=== PATIENT | female | born 1945 | race Caucasian/White ===

== ENCOUNTER 2024-03-22 15:37 | Emergency (ER) | payer MEDICARE, OTHER, SELFPAY ==
[2024-03-22 15:40] VITALS: BP 140/97
[2024-03-22 16:16] LABS: % Basophils 0.8 % (0-2); % Eosinophils 2.5 % (0-6); % Immature Granulocytes 0.4 % (0-0.5); % Lymphocytes 27.3 % (20.5-51.1); % Monocytes 7.1 % (1.7-9.3); % Neutrophils 61.9 % (42.2-75.2); Absolute Basophils 0.1 10^3/uL (0-0.2); Absolute Eosinophils 0.3 10^3/uL (0-0.7); Absolute Immature Granulocytes 0.1 10^3/uL (0-0.05); Absolute Lymphocytes 3.1 10^3/uL (1.2-3.4); Absolute Monocytes 0.8 10^3/uL (0.1-0.6); Absolute Neutrophils 6.9 10^3/uL (1.4-6.5); Hematocrit 37.8 % (37.0-47.0); Hemoglobin 13.4 g/dL (12.0-16.0); Mean Corp Hgb Conc. 35.4 g/dL (33.0-37.0); Mean Corpuscular Hgb 30.7 pg (27.0-31.0); Mean Corpuscular Volume 86.5 fL (81.0-99.0); Mean Platelet Volume 8.4 fL (7.4-10.4); Nucleated Red Blood Cells % 0 %; Platelet Count 407 10^3/uL (130-400); Red Blood Cell Count 4.37 10^6/uL (4.20-5.40); Red Cell Dist. Width 13.1 % (11.5-14.5); White Blood Cell Count 11.2 10^3/uL (4.8-10.8)
[2024-03-22 16:19] LABS: ALT (SGPT) 25 U/L (0-35); AST (SGOT) 33 U/L (14-36); Albumin 4.8 g/dl (3.5-5.0); Alkaline Phosphatase 96 U/L (38-126); Blood Urea Nitrogen 25 mg/dl (7-17); Calcium 9.9 mg/dl (8.4-10.2); Carbon Dioxide 25 mmol/L (22-30); Chloride 100 mmol/L (98-107); Glucose 131 mg/dl (70-99); Potassium 4.4 mmol/L (3.5-5.1); Sodium 134 mmol/L (135-145); Total Bilirubin 1.1 mg/dl (0.2-1.3); Total Protein 7.6 g/dl (6.3-8.2); eGFR > 60.00
[2024-03-22 16:25] LABS: Troponin I < 0.012 ng/ml
--- NOTE | 2024-03-22 17:33 | ED.GENMED ---
History of Present Illness
<Ada Muhammad PA-C - Last Filed: 03/22/24 19:01>
General
Chief Complaint: Allergic Reaction
Source: patient
Exam Limitations: none
Time Seen by Provider: 03/22/24 16:46
Nursing documentation reviewed up to this point in time: agreed with
History of Present Illness
History of Present Illness:
78-year-old female with past medical history of asthma, hypertension, hyperlipidemia, diabetes on metformin presenting emergency department today with concerns of allergic reaction. Patient states that she had her first dose of her new asthma
medication last night called montelukast. Patient states that this morning around 10 AM, she started to have mild discomfort in her chest, discomfort in her throat, and itchy rash on her bilateral upper and lower extremities, as well as flushing
sensation and swelling in her eyelids. Patient got this a few weeks ago for full body rash. Patient notes that her passed years ago and thinks that her recent outbreaks of this rash may be related. Patient follows with Dr. Alonzo for
pulmonology. Patient does not have a follow-up scheduled. Patient denies shortness of breath, tongue or lip swelling, eye pain or itchiness, abdominal pain, nausea, vomiting. Patient denies any new foods or environmental triggers. Patient also
states that she feels congested. Patient has not tried anything at home for her symptoms.
Review of Systems
<Ada Muhammad PA-C - Last Filed: 03/22/24 19:01>
Review of Systems
All Other Systems: ROS reviewed and negative except as documented in HPI and ROS
Phy Exam
<Ada Muhammad PA-C - Last Filed: 03/22/24 19:01>
Physical Exam
Physical Exam:
General: Patient is well appearing and in no acute distress; non-toxic
Skin: Warm and dry, scattered urticarial rash noted to bilateral upper and lower extremities no excoriations or open lesions
Head: Normocephalic, atraumatic
Eyes: Sclera non-icteric. EOMs intact. Mild swelling of left upper eyelid.
Mouth: Uvula midline. No tonsillar hypertrophy.
Cardiac: Regular rate and rhythm, no murmur. No tenderness palpation of the external chest wall.
Peripheral Vascular: No lower extremity swelling or edema
Pulm: Normal respiratory effort, no wheezes, rales, rhonchi
Abdomen: No abdominal tenderness to palpation
Neuro: CN II-XII intact, no focal neurologic deficits.
Psychiatric: Appropriate mood and affect.
Course
<Ada Muhammad PA-C - Last Filed: 03/22/24 19:01>
Orders/Labs/Results
Orders:
Orders
03/22/24 15:46
Electrocardiogram (*1) Urgent
Reason for Study: Chest Pain
EKG- Treatment ONCE
03/22/24 15:52
Complete Blood Count/With Diff Urgent
Comprehensive Metabolic Panel Urgent
Troponin I Urgent
03/22/24 17:13
Diphenhydramine [Benadryl] 25 mg PO NOW STA
Famotidine [Pepcid] 20 mg PO NOW STA
03/22/24 17:23
Diphenhydramine [Benadryl] 25 mg PO NOW STA
Famotidine [Pepcid] 20 mg PO NOW STA
03/22/24 17:25
Dexamethasone [Decadron] 10 mg PO NOW STA
Abnormal Lab Results
03/22/24
15:52
WBC 11.2 H 10^3/uL
(4.8-10.8)
Plt Count 407 H 10^3/uL
(130-400)
Abs Immat Gran (auto) 0.1 H 10^3/uL
(0-0.05)
Absolute Neuts (auto) 6.9 H 10^3/uL
(1.4-6.5)
Absolute Monos (auto) 0.8 H 10^3/uL
(0.1-0.6)
Sodium 134 L mmol/L
(135-145)
BUN 25 H mg/dl
(7-17)
Glucose 131 H mg/dl
(70-99)
03/22/24 15:52
03/22/24 15:52
Vital Signs
Initial and Last Documented VS:
Initial Vital Signs
Temp Pulse Resp BP Pulse Ox
97.8 F 78 20 140/97 98
03/22/24 15:40 03/22/24 15:40 03/22/24 15:40 03/22/24 15:40 03/22/24 15:40
Last Documented Vital Signs
Temp Pulse Resp BP Pulse Ox
97.8 F 75 18 153/79 96
03/22/24 15:40 03/22/24 18:52 03/22/24 18:52 03/22/24 18:52 03/22/24 18:52
<Roberto Velez, DO - Last Filed: 03/22/24 19:48>
Orders/Labs/Results
Orders:
Orders
03/22/24 15:46
Electrocardiogram (*1) Urgent
Reason for Study: Chest Pain
EKG- Treatment ONCE
03/22/24 15:52
Complete Blood Count/With Diff Urgent
Comprehensive Metabolic Panel Urgent
Troponin I Urgent
03/22/24 17:13
Diphenhydramine [Benadryl] 25 mg PO NOW STA
Famotidine [Pepcid] 20 mg PO NOW STA
03/22/24 17:23
Diphenhydramine [Benadryl] 25 mg PO NOW STA
Famotidine [Pepcid] 20 mg PO NOW STA
03/22/24 17:25
Dexamethasone [Decadron] 10 mg PO NOW STA
Abnormal Lab Results
03/22/24
15:52
WBC 11.2 H 10^3/uL
(4.8-10.8)
Plt Count 407 H 10^3/uL
(130-400)
Abs Immat Gran (auto) 0.1 H 10^3/uL
(0-0.05)
Absolute Neuts (auto) 6.9 H 10^3/uL
(1.4-6.5)
Absolute Monos (auto) 0.8 H 10^3/uL
(0.1-0.6)
Sodium 134 L mmol/L
(135-145)
BUN 25 H mg/dl
(7-17)
Glucose 131 H mg/dl
(70-99)
03/22/24 15:52
03/22/24 15:52
Vital Signs
Initial and Last Documented VS:
Initial Vital Signs
Temp Pulse Resp BP Pulse Ox
97.8 F 78 20 140/97 98
03/22/24 15:40 03/22/24 15:40 03/22/24 15:40 03/22/24 15:40 03/22/24 15:40
Last Documented Vital Signs
Temp Pulse Resp BP Pulse Ox
97.8 F 75 18 153/79 96
03/22/24 15:40 03/22/24 18:52 03/22/24 18:52 03/22/24 18:52 03/22/24 18:52
[place];Ada Muhammad PA-C - Last Filed: 03/22/24 19:01>
MDM/Problems Addressed
Differential Diagnosis Includes:
Differentials include acute drug reaction, contact dermatitis, allergic rhinitis, cholinergic urticaria
MDM/Problems Addressed:
Allergic reaction:
78-year-old female with past medical history of asthma, hypertension, hyperlipidemia, diabetes on metformin presenting emergency department today with concerns of allergic reaction. Patient states that she had her first dose of her new asthma
medication last night called montelukast. Patient states that this morning around 10 AM, she started to have mild discomfort in her chest, discomfort in her throat, and itchy rash on her bilateral upper and lower extremities, as well as flushing
sensation and swelling in her eyelids. Patient did not take any medications for her symptoms. On exam, she is well-appearing, she is mild urticarial rash to her upper bilateral lower extremities, she has no airway involvement, her lungs are clear
to auscultation bilaterally. Patient was treated with Benadryl, famotidine, and a dose of Decadron here in emergency department. Discussed discontinuing the montelukast and keeping an log of her symptoms so that she can bring her symptoms to
follow-up with the pharmacy intake technician. We did give her referral for pharmacy intake technician. Concern for ACS at this time, patient had an undetectable troponin here and her symptoms started at 10 AM, her EKG shows normal sinus rhythm with no ischemic changes. Patient
stable for outpatient follow-up.
Chronic conditions affecting care:
Asthma, hypertension, hyperlipidemia, diabetes on metformin
<Ada Muhammad PA-C - Last Filed: 03/22/24 19:01>
*Critical Care Note
Total Time (30-74mins, 75-104mins- exclusive of procedures): Not Applicable
<Ada Muhammad PA-C - Last Filed: 03/22/24 19:01>
Patient Management
Escalation/DeEscalation of care consider admission/obs:
admit not indicated, patient stable for discharge, return precautions discussed
ED Attending Note
<NELL Davis Last Filed: 03/22/24 19:01>
-
Portions of this chart may have been created with voice recognition software.� Occasional wrong word or��sound alike� substitutions may have occurred due to the inherent limitations of voice recognition software.
<Roberot Velez DO - Last Filed: 03/22/24 19:48>
ED Attending Note
Patient seen and examined by attending physician: Yes
I performed the substantive portion of visit, reviewed & personally made and approve the management plan that is documented in note by myself or PATRICIA.: Yes
ED Attending Note:
78-year-old female who unfortunately had multiple allergic reactions in the recent past related to different medications. She started Singulair last night and today had felt flushed, some swelling of her eyes, redness of her arms and some chest
tightness and heaviness. The heaviness of her chest is what worried her the most. She now feels much better. Patient mitts that she has had allergic reactions to other medications over time as well. She has been suffering from some asthma. She
did feel good when she was recently on steroids exam: Awake alert, lungs clear bilaterally, heart regular. No tongue or lip swelling. No stridor. Assessment plan: For now we will stop Singulair but I advised the patient to use a log for future
reactions. She will follow-up with an pharmacy intake technician.
Discharge Plan
Departure
Patient Disposition: Home (Routine Discharge)
Date of Disposition: 03/22/24
Time of Disposition: 18:55
Patient with high blood pressure during this ER visit?: Yes
Condition: Good
Discharge Problem:
Allergic reaction
Instructions: Hives (DC), Adverse Drug Reactions, Adult (DC), BLOOD PRESSURE
Referrals:
Duong Hernandez PA-C [[facility]] - Call in 1-3 days for appt
Maris Miller CRNP [Family Provider] -
Activity Restrictions/Additional Instructions:
As discussed, keep a log of your symptoms to report to the pharmacy intake technician. You can call the attached number for follow-up appointment.
You can take Benadryl as needed for symptoms.
Please stop taking your montelukast.
Please return to the emergency department should you experience chest pain, shortness of breath, sensation of your throat closing, tongue or lip swelling, intractable vomiting, fevers or chills, difficulty speaking, confusion, weakness, or any signs
or symptoms concerning to you.
Please follow-up with your primary care provider and your university counselor.
Interventions
Interventions:
*Risk Screen - Suicide Last Done: 03/22/24 15:40
*General Assessment Last Done: 03/22/24 15:40
*Neglect/Abuse Screening Last Done: 03/22/24 15:40
ED- Fall Risk Assessment Last Done: 03/22/24 17:22
*Nursing Disposition Last Done: 03/22/24 19:02
ED- Cardiac Assessment Last Done: 03/22/24 17:22
ED- Pulmonary Assessment Last Done: 03/22/24 17:22
ED-Skin Assessment Last Done: 03/22/24 17:22
Discharge Date and Time
Discharge Date/Time: 03/22/24 19:02
Print Language: WELSH
[2024-03-22] MEDS: DECADRON 10 MG PO (17:35)
[2024-03-22] MEDS: BENADRYL 25 MG PO (17:36)
[2024-03-22] MEDS: PEPCID 20 MG PO (17:36)
[2024-03-22 18:52] VITALS: BP 153/79
== END 2024-03-22 19:02 | disposition home or self-care (01) ==
LOC: EMR 15:37
PROVIDERS: Emergency Medicine; EMERGENCY PHYSICIAN Emergency Medicine; FAMILY PHYSICIAN Nurse Practitioner Family
DX: T78.40XA Allergy, unspecified, initial encounter (principal); X58.XXXA Exposure to other specified factors, initial encounter; J45.909 Unspecified asthma, uncomplicated; I10 Essential (primary) hypertension; E78.00 Pure hypercholesterolemia, unspecified; E11.9 Type 2 diabetes mellitus without complications; Z88.8 Allergy status to other drugs, medicaments and biological substances
CPT/HCPCS: 99283; 80053; 84484; 85025; 93005

== ENCOUNTER 2024-05-02 19:02 | Emergency (ER) | payer MEDICARE, OTHER, SELFPAY ==
[2024-05-02 19:10] VITALS: BP 153/74
[2024-05-02 19:54] VITALS: BMI 30.4
[2024-05-02 20:06] VITALS: BP 154/68
[2024-05-02 20:52] VITALS: BP 149/82
[2024-05-02] MEDS: DELTASONE 50 MG PO (20:54)
--- NOTE | 2024-05-02 20:55 | ED.GENMED ---
History of Present Illness
General
Chief Complaint: Breathing Problem
Source: patient
Exam Limitations: none
Time Seen by Provider: 05/02/24 19:53
Nursing documentation reviewed up to this point in time: agreed with
History of Present Illness
History of Present Illness:
Patient with longstanding history of asthma, who utilizes rescue inhaler as well as Spiriva, presents to ED secondary to recurrent throat prickly sensation along with wheezing starting this afternoon. Patient does have a DuoNeb, that she utilizes
as needed, which she used this afternoon with improvement. However, her symptoms came back couple hours later. Due to potential side effects, patient was afraid to use it again. Denies fever or chills. Denies coughing. Patient reports
intermittent cough. Denies chest pain. Denies back pain. Denies nausea or vomiting. Denies sick contact. Denies recent travel. Patient unfortunately has had number of similar symptoms in the recent past, and reports feeling frustrated, as her
symptoms are continuing despite changing her medications. She does have an appointment with her business management analyst next month.
Review of Systems
Review of Systems
Allergies reviewed?: Yes
All Other Systems: ROS reviewed and negative except as documented in HPI and ROS
Constitutional: Reports no symptoms; Denies fever
EENT: Reports no symptoms
Respiratory: Reports cough and trouble breathing
Cardiac: Reports no symptoms
ABD/GI: Reports no symptoms
Musculoskeletal: Reports no symptoms
Skin: Reports no symptoms; Denies itching or rash
Neurological: Reports no symptoms; Denies headache
Phy Exam
Physical Exam
Physical Exam:
Physical Exam
General: no apparent distress, not acutely ill. afebrile
Head: nc/at. eomi
Neck: supple. no meningeal signs.
Heart: s1/s2 regular rate and rhythm, no murmur. equal radial pulses.
Lungs: no acute respiratory distress. mild expiratory wheezing noted bilaterally
Abdomen: normal bowel sounds. not tender.
Neuro: alert and oriented. no focal neurological deficits
Skin: no rash
Psychiatric: well kept. interactive and cooperative
Extremities: no edema. no calf tenderness.
Scores
Heart Failure Risk
Heart Failure Risk Score: Not Applicable
Course
Orders/Labs/Results
Orders:
Orders
05/02/24 20:52
Prednisone [Deltasone] 50 mg PO NOW STA
05/02/24 20:55
Prednisone [Deltasone] 50 mg PO NOW STA
Vital Signs
Initial and Last Documented VS:
Initial Vital Signs
Temp Pulse Resp BP Pulse Ox
97.8 F 82 20 153/74 98
05/02/24 19:10 05/02/24 19:10 05/02/24 19:10 05/02/24 19:10 05/02/24 19:10
Last Documented Vital Signs
Temp Pulse Resp BP Pulse Ox
98.0 F 80 18 149/82 97
05/02/24 20:06 05/02/24 20:52 05/02/24 20:52 05/02/24 20:52 05/02/24 20:52
MDM/Problems Addressed
MDM/Problems Addressed:
History and exam consistent with likely recurrent asthma exacerbation, possibly secondary to recent weather changes. However, patient is afebrile, hemodynamically stable, with stable vital signs. Patient is not any acute respiratory distress,
despite mild wheezing noted on exam. At this time, I believe it is reasonable to discharge patient home on tapered dose of prednisone, which she has taken in the past with improvement, along with close follow-up with her business management analyst. Patient and
daughter expressed understanding at time of discharge.
*Critical Care Note
Total Time (30-74mins, 75-104mins- exclusive of procedures): Not Applicable
ED Attending Note
-
Portions of this chart may have been created with voice recognition software.� Occasional wrong word or��sound alike� substitutions may have occurred due to the inherent limitations of voice recognition software.
Discharge Plan
Departure
Patient Disposition: Home (Routine Discharge)
Date of Disposition: 05/02/24
Time of Disposition: 20:55
Patient with high blood pressure during this ER visit?: Yes
Condition: Good
Discharge Problem:
Asthma
Instructions: Asthma, Adult (DC)
Prescriptions:
New
prednisone 10 mg Tablet
See Rx Instructions .ROUTE .COMPLEX Qty: 30 0RF
Rx Instructions:
Take By Mouth:
40 mg daily x3 days, 30 mg daily x3 days,
20 mg daily x3 days, 10 mg daily x3 days.
No Action
metoprolol succinate 100 mg Tablet Extended Release 24 Hr
100 mg PO DAILY
amlodipine 10 mg Tablet
10 mg PO DAILY
metformin 1,000 mg Tablet
1,000 mg PO DAILY
hydrochlorothiazide 25 mg Tablet
25 mg PO DAILY
losartan 100 mg Tablet
100 mg PO DAILY
fluticasone propionate 50 mcg/actuation [place],Suspension
1 spray INTRANASAL Q12H
loratadine [Claritin] 10 mg Tablet
10 mg PO DAILY
Centrum Silver Tablet
1 tab PO DAILY
coenzyme Q10 [CoQ-10] 100 mg Capsule
300 mg PO DAILY
Leqvio 284 mg/1.5 mL Syringe
284 mg SC [id number]
Referrals:
Wendi Toledo DO [Active] -
Activity Restrictions/Additional Instructions:
As discussed, please follow-up with your business management analyst for further evaluation and treatment. Your prescription has been sent electronically to [facility].
Interventions
Interventions:
*Risk Screen - Suicide Last Done: 05/02/24 19:56
*General Assessment Last Done: 05/02/24 19:53
*Neglect/Abuse Screening Last Done: 05/02/24 19:54
ED- Fall Risk Assessment Last Done: 05/02/24 20:07
*ED COVID-19 Vaccine History Last Done: 05/02/24 19:53
*Nursing Disposition Last Done: 05/02/24 20:58
ED- Cardiac Assessment Last Done: 05/02/24 20:07
ED- Pulmonary Assessment Last Done: 05/02/24 20:07
Discharge Date and Time
Discharge Date/Time: 05/02/24 21:04
Print Language: [place]
== END 2024-05-02 21:04 | disposition home or self-care (01) ==
LOC: EMR 19:02
PROVIDERS: EMERGENCY PHYSICIAN Emergency Medicine; FAMILY PHYSICIAN Nurse Practitioner Family
DX: J45.901 Unspecified asthma with (acute) exacerbation (principal); I10 Essential (primary) hypertension; E78.5 Hyperlipidemia, unspecified; E11.36 Type 2 diabetes mellitus with diabetic cataract; Z85.3 Personal history of malignant neoplasm of breast; Z79.84 Long term (current) use of oral hypoglycemic drugs; Z88.0 Allergy status to penicillin; Z88.8 Allergy status to other drugs, medicaments and biological substances
CPT/HCPCS: 99283

== ENCOUNTER 2024-10-30 22:01 | Emergency (ER) | payer MEDICARE, OTHER, SELFPAY ==
[2024-10-30 22:07] VITALS: BP 160/87
[2024-10-30 23:01] VITALS: BP 138/65
[2024-10-30 23:06] VITALS: BMI 31.4
--- NOTE | 2024-10-30 23:40 | ED.GENMED ---
History of Present Illness
General
Chief Complaint: Heart Rate Problem
Source: patient
Time Seen by Provider: 10/30/24 22:59
History of Present Illness
History of Present Illness:
79-year-old female presents emergency complaint palpitations. Patient was sitting watching TV when she noted an irregular heartbeat. She did count her pulse and noted it was up to 100. Symptoms seem to have resolved at this point. She did
consume 2 large glasses of iced tea and half a cup of coffee this evening. The coffee is typical for her but the ice tea was not something she typically consumes at night. Also noted that she had a shingles vaccine injection couple days ago. No
shortness of breath. No chest pressure or tightness.
Phy Exam
Physical Exam
Physical Exam:
General: Awake, Alert, Oriented X3. No acute distress.
Vitals: unremarkable
Head: Atraumatic
Eyes: Pupils equal, EOMI
Throat: Airway intact, no exudates
Neck: Trachea midline
Lungs: Clear and equal b/l
Heart: Regular rate, no murmurs
Abd: Soft, Nontender, No pulsatile mass
Neuro: Nonfocal
Skin: Warm, dry, no rash
Extremities: pulses equal b/l, no edema
Course
Orders/Labs/Results
Orders:
Orders
10/30/24 22:02
ECG [Electrocardiogram (*1)] Urgent
Reason for Study: Tachycardia
EKG- Treatment ONCE
10/30/24 23:51
Basic Metabolic Panel Urgent
Complete Blood Count/With Diff Urgent
Magnesium Urgent
Abnormal Lab Results
10/30/24
23:51
Absolute Monos (auto) 0.9 H 10^3/uL
(0.1-0.6)
BUN 19 H mg/dl
(7-17)
Glucose 148 H mg/dl
(70-99)
10/30/24 23:51
10/30/24 23:51
Vital Signs
Initial and Last Documented VS:
Initial Vital Signs
Temp Pulse Resp BP Pulse Ox
98.5 F 96 18 160/87 99
10/30/24 22:07 10/30/24 22:07 10/30/24 22:07 10/30/24 22:07 10/30/24 22:07
Last Documented Vital Signs
Temp Pulse Resp BP Pulse Ox
98.5 F 74 20 146/68 99
10/30/24 22:07 10/31/24 00:55 10/31/24 00:55 10/31/24 00:00 10/31/24 00:55
MDM/Problems Addressed
Differential Diagnosis Includes:
PVCs, PACs, A-fib
MDM/Problems Addressed:
Patient presents feeling an irregular heart rate. She did measure her heart rate at home and it was about 100. EKG here shows some PACs. She was monitored on the monitoring manager for couple hours without any significant dysrhythmias. Her labs are
all reassuring. Patient stable for discharge home and follow-up with her primary care provider. Recommend decrease caffeine intake particularly towards the evening.
*Pulse Oximetry
Patient hypoxic: no
*EKG
Interpreted by ED Provider?: Yes
Interpretation: abnormal
Heart Rate: 99
Rate: normal
Rhythm: sinus and PAC's
[place]: normal axis
Interval: normal interval
QRS Pattern: normal QRS
Ischemia: non-specific ST changes
*Critical Care Note
Total Time (30-74mins, 75-104mins- exclusive of procedures): Not Applicable
ED Attending Note
-
Portions of this chart may have been created with voice recognition software.� Occasional wrong word or��sound alike� substitutions may have occurred due to the inherent limitations of voice recognition software.
Discharge Plan
Departure
Patient Disposition: Home (Routine Discharge)
Date of Disposition: 10/31/24
Time of Disposition: 00:26
Patient with high blood pressure during this ER visit?: Yes
Condition: Good
Discharge Problem:
Palpitations
Instructions: Palpitations (DC), BLOOD PRESSURE
Prescriptions:
No Action
metoprolol succinate 100 mg Tablet Extended Release 24 Hr
100 mg PO DAILY
amlodipine 10 mg Tablet
10 mg PO DAILY
metformin 1,000 mg Tablet
1,000 mg PO DAILY
hydrochlorothiazide 25 mg Tablet
25 mg PO DAILY
losartan 100 mg Tablet
100 mg PO DAILY
fluticasone propionate 50 mcg/actuation [place],Suspension
1 spray INTRANASAL Q12H
loratadine [Claritin] 10 mg Tablet
10 mg PO DAILY
Centrum Silver Tablet
1 tab PO DAILY
coenzyme Q10 [CoQ-10] 100 mg Capsule
300 mg PO DAILY
Leqvio 284 mg/1.5 mL Syringe
284 mg SC [id number]
prednisone 10 mg Tablet
See Rx Instructions .ROUTE .COMPLEX Qty: 30 0RF
Rx Instructions:
Take By Mouth:
40 mg daily x3 days, 30 mg daily x3 days,
20 mg daily x3 days, 10 mg daily x3 days.
Interventions
Interventions:
*Risk Screen - Suicide Last Done: 10/30/24 22:07
*General Assessment Last Done: 10/30/24 22:07
*Neglect/Abuse Screening Last Done: 10/30/24 22:07
*ED- Fall Risk Assessment Last Done: 10/30/24 22:07
*ED COVID-19 Vaccine History Last Done: 10/30/24 22:07
*Nursing Disposition Last Done: 10/31/24 00:55
ED- Cardiac Assessment Last Done: 10/31/24 00:05
ED- Pulmonary Assessment Last Done: 10/31/24 00:05
Discharge Date and Time
Discharge Date/Time: 10/31/24 00:55
Print Language: ICELANDIC
[2024-10-30 23:58] LABS: % Basophils 0.8 % (0-2); % Immature Granulocytes 0.4 % (0-0.5); % Lymphocytes 23.8 % (20.5-51.1); % Monocytes 9.2 % (1.7-9.3); % Neutrophils 62.8 % (42.2-75.2); Absolute Basophils 0.1 10^3/uL (0-0.2); Absolute Eosinophils 0.3 10^3/uL (0-0.7); Absolute Lymphocytes 2.2 10^3/uL (1.2-3.4); Absolute Monocytes 0.9 10^3/uL (0.1-0.6); Absolute Neutrophils 5.8 10^3/uL (1.4-6.5); Hematocrit 39.5 % (37.0-47.0); Hemoglobin 13.7 g/dL (12.0-16.0); Mean Corp Hgb Conc. 34.7 g/dL (33.0-37.0); Mean Corpuscular Volume 86.4 fL (81.0-99.0); Mean Platelet Volume 8.3 fL (7.4-10.4); Nucleated Red Blood Cells % 0 %; Platelet Count 341 10^3/uL (130-400); Red Blood Cell Count 4.57 10^6/uL (4.20-5.40); Red Cell Dist. Width 12.8 % (11.5-14.5); White Blood Cell Count 9.3 10^3/uL (4.8-10.8)
[2024-10-31] VITALS: BP 146/68
[2024-10-31 00:16] LABS: Blood Urea Nitrogen 19 mg/dl (7-17); Calcium 9.6 mg/dl (8.4-10.2); Carbon Dioxide 22 mmol/L (22-30); Chloride 99 mmol/L (98-107); Estimated Creatinine Clearance 60 ml/min; Glucose 148 mg/dl (70-99); Magnesium 1.8 mg/dl (1.6-2.3); Potassium 3.7 mmol/L (3.5-5.1); Sodium 135 mmol/L (135-145); eGFR > 60.00
== END 2024-10-31 00:55 | disposition home or self-care (01) ==
LOC: EMR 22:01
PROVIDERS: EMERGENCY PHYSICIAN Emergency Medicine; FAMILY PHYSICIAN Nurse Practitioner Family
DX: R00.2 Palpitations (principal)
CPT/HCPCS: 99283; 80048; 83735; 85025; 93005